=== PATIENT | female | born 1980 | race Caucasian/White ===

== ENCOUNTER 2019-10-16 14:50 | Emergency (ER) | payer BC ==
[2019-10-16] MEDS ORDERED: HYDROcodone/ACETAMIN 5-325 MG* 1 TAB PO ONE (15:09)
[2019-10-16] MEDS ORDERED: Ibuprofen TAB* 600 MG PO ONE (15:10)
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
== END 2019-10-16 16:17 | disposition home or self-care (01) ==
LOC: EDBD → ED 14:50
DX: T23.001A Burn of unspecified degree of right hand, unspecified site, initial encounter (principal); T25.022A Burn of unspecified degree of left foot, initial encounter; X10.2XXA Contact with fats and cooking oils, initial encounter; Y92.9 Unspecified place or not applicable; Z87.891 Personal history of nicotine dependence
CPT/HCPCS: 99283; A9270-GY